=== PATIENT | male | born 1955 | race Caucasian/White ===

== ENCOUNTER 2017-10-13 13:04 | Observation (INO) | payer OTHER ==
[~2017-10-13] VITALS: Ht 182.9 cm; Wt 145.1 kg
[~2017-10-13 13:04] MED LIST: ENAL5TAB92 PO; FURO20TA PO
[2017-10-13 13:18] VITALS: BP 162/84
[2017-10-13] MEDS ORDERED: TETANUS-DIPTH-ACEL PERTUSSIS 0.5ML SYRG IM ONE (13:30)
[2017-10-13 13:58] LABS: Basophils # (auto) 0 uL; Basophils % (auto) 0.4 % (0.0-2.0); Eosinophils # (auto) 0 uL; Eosinophils % (auto) 0.4 % (0.0-7.0); Hematocrit 39.5 % (41.0-53.0); Hemoglobin 13.4 g/dL (13.5-17.5); Lymphocytes # (auto) 0.8 uL; Lymphocytes % (auto) 8.2 % (10.0-50.0); Mean Corpuscular Hemoglobin 28.5 pg (28.0-32.0); Mean Corpuscular Volume 83.8 fL (80.0-100.0); Monocytes # (auto) 0.7 uL; Neutrophils # (auto) 8.4 uL; Nucleated Red Blood Cells % 0.1 %; Platelet Count (auto) 218 10^3/uL (140-450); Red Blood Cells 4.71 10^6/uL (4.5-5.90)
[2017-10-13 14:11] LABS: Partial Thromboplastin Time 24.3 sec (22.64-33.71); Prothrombin Time 10.9 sec (9.37-12.3)
[2017-10-13 14:24] LABS: Albumin 3.7 g/dL (3.4-5.0); BUN/Creatinine Ratio 13.7; Bilirubin, Total 0.4 mg/dL (0.2-1.0); Magnesium 2.5 mg/dL (1.6-2.6); Potassium 3.9 mmol/L (3.5-5.1); Total Protein 7.2 g/dL (6.4-8.2)
[2017-10-13] MEDS ORDERED: ACETAMINOPHEN 325 MG TAB PO ONE (15:45)
== END 2017-10-13 16:31 | disposition home or self-care (01) | DRG 156 ==
LOC: ER 13:04 → EDBD 13:04 → OVERFLOW 13:29 → ER 16:31
PROVIDERS: ADMIT Family Medicine; ATTEND Family Medicine
DX: S02.2XXA Fracture of nasal bones, initial encounter for closed fracture (principal); F41.9 Anxiety disorder, unspecified; S00.83XA Contusion of other part of head, initial encounter; I10 Essential (primary) hypertension; Y04.2XXA Assault by strike against or bumped into by another person, initial encounter; Y93.89 Activity, other specified; Y92.89 Other specified places as the place of occurrence of the external cause; Y99.8 Other external cause status; Z23 Encounter for immunization
CPT/HCPCS: 36415; 70450; 70486; 71045; 80053; 83735; 84484; 85025; 85610; 85730; 90471; 90715; 93005; 99285; G0378

== ENCOUNTER 2021-01-07 07:13 | Inpatient (IN) | payer OTHER ==
[~2021-01-07] VITALS: Ht 182.9 cm; Wt 161.0 kg
[~2021-01-07 07:13] MED LIST changes: +ENAL5TAB10 PO; -ENAL5TAB92 PO; +FURO1TAB33 PO; -FURO20TA PO
[2021-01-07] MEDS ORDERED: dilTIAZem HCL 50 MG/10 ML VIAL IV ONE (07:33)
[2021-01-07] MEDS ORDERED: FUROSEMIDE 40 MG/4 ML VIAL IV ONE (07:45)
[2021-01-07] MEDS ORDERED: dilTIAZem 25 MG/5 ML VIAL IV ONE (07:45)
[2021-01-07 07:47] LABS: Basophils # (auto) 0 10 ^3/uL (0-0.2); Basophils % (auto) 0.3 % (0.0-2.0); Eosinophils # (auto) 0.2 10 ^3/uL (0-0.8); Eosinophils % (auto) 1.8 % (0.0-7.0); Hematocrit 43.7 % (41.0-53.0); Hemoglobin 15.2 g/dL (13.5-17.5); Lymphocytes # (auto) 1.6 10 ^3/uL (0.4-5.4); Mean Corpuscular Hemoglobin 32.6 pg (28.0-32.0); Mean Corpuscular Hgb Conc. 34.8 g/dL (32.0-36.0); Mean Corpuscular Volume 93.5 fL (80.0-100.0); Monocytes # (auto) 0.5 10 ^3/uL (0-1.3); Neutrophils # (auto) 8.5 10 ^3/uL (1.6-8.6); Neutrophils % (auto) 77.9 % (37.0-80.0); Nucleated Red Blood Cells % 0.1 %; Red Blood Cells 4.68 10^6/uL (4.5-5.90); Red Cell Distribution Width 16.7 % (11.8-14.3); White Blood Cell 10.9 10^3/uL (4.4-10.8)
[2021-01-07 08:01] LABS: INR 1.07 (0.9-1.15)
[2021-01-07 08:05] LABS: Alanine Aminotransferase 56 U/L (16-61); Albumin 3.6 g/dL (3.4-5.0); Anion Gap 5 (5-15); Blood Urea Nitrogen 15 mg/dL (7-18); Calcium 8.6 mg/dL (8.5-10.1); Carbon Dioxide 29 mmol/L (21-32); Chloride 108 mmol/L (98-107); Glucose 156 mg/dL (74-106); Potassium 3.4 mmol/L (3.5-5.1); Sodium 142 mmol/L (136-145)
[2021-01-07 08:10] LABS: Alkaline Phosphatase 66 U/L (45-117); Aspartate Aminotransferase 39 U/L (15-37); BUN/Creatinine Ratio 14.7; Bilirubin, Total 1.2 mg/dL (0.2-1.0); GFR African American 94 mL/min; GFR Non-African American 77 mL/min; Total Protein 7.3 g/dL (6.4-8.2)
[2021-01-07 12:33] LABS: Urine WBC None Seen /hpf (0 - 3)
[2021-01-07 12:50] LABS: Urine Bacteria NONE SEEN /hpf (None Seen); Urine Blood Negative /uL (Negative); Urine Specific Gravity 1.009 (1.001-1.035)
[2021-01-07] MEDS ORDERED: NITROGLYCERIN 0.4 MG SL TAB SL PRN ×2 (13:00→18:00)
[2021-01-07] MEDS ORDERED: MORPHINE SULFATE INJECTION 2 MG/ML SYRG IV PRN ×3 (13:00→18:00)
[2021-01-07] MEDS ORDERED: ONDANSETRON HCL 4 MG/2 ML VIAL ONE (13:25)
[2021-01-07] MEDS ORDERED: ACETAMINOPHEN 325 MG TAB PO ONE (17:30)
[2021-01-07 17:58] VITALS: BP 123/99
[2021-01-07] MEDS ORDERED: ALUM & MAG HYDROX-SIMETH LIQ(MAALOX) 30 ML PO PRN (18:00)
[2021-01-07] MEDS ORDERED: ACETAMINOPHEN 325 MG TAB PO PRN (18:00)
[2021-01-07] MEDS ORDERED: METOCLOPRAMIDE HCL 5MG/ml INJ 2ml VIAL IV PRN (18:00)
[2021-01-07] MEDS ORDERED: DOCUSATE SOD 100 MG CAP PO PRN (18:00)
[2021-01-07] MEDS: RIVAROXABAN 20 MG TAB PO SCH (18:18)
[2021-01-07 18:24] VITALS: BP 123/99
[2021-01-07] MEDS ORDERED: CARV3.1240 PO (18:31)
[2021-01-07] MEDS ORDERED: PREG-108 PO (18:31)
[2021-01-07] MEDS: FUROSEMIDE 40 MG/4 ML VIAL IV SCH (18:43)
[2021-01-07] MEDS: SODIUM CHLOR 0.9% PF (SALINE LOCK) 10ML VIAL/SYR IV SCH (21:10)
[2021-01-07] MEDS: ATORVASTATIN 20 MG TAB PO SCH (21:11)
[2021-01-07] MEDS: SACUBITRIL-VALSARTAN 24mg/26mg TAB PO SCH (21:11)
[2021-01-07] MEDS: GABAPENTIN 300 MG CAP PO SCH (21:11)
[2021-01-07] MEDS: LORazepam 0.5 MG TAB PO PRN (21:12)
[2021-01-07 22:00] VITALS: BP 128/78
[2021-01-07 22:34] LABS: Alcohol, Urine < 3.0 mg/dL (0-10); Amphetamine Screen, Urine NEGATIVE (NEGATIVE); Barbiturate Scree,Urine NEGATIVE (NEGATIVE); Benzodiazephine Screen, Urine NEGATIVE (NEGATIVE); Cannabinoid Screen, Urine POSITIVE (NEGATIVE); Cocaine Screen, Urine NEGATIVE (NEGATIVE); Opiate Scree,Urine NEGATIVE (NEGATIVE); Phencyclidine Screen, Urine NEGATIVE (NEGATIVE)
[2021-01-07] MEDS: HYDROcodone-ACET 5/325MG TAB PO PRN (23:10)
[2021-01-08 05:00] VITALS: BP 121/77
[2021-01-08 05:56] LABS: Albumin 3.3 g/dL (3.4-5.0); Anion Gap 3 (5-15); Blood Urea Nitrogen 16 mg/dL (7-18); Calcium 8.3 mg/dL (8.5-10.1); Carbon Dioxide 34 mmol/L (21-32); Chloride 104 mmol/L (98-107); Glucose 107 mg/dL (74-106); Magnesium 2.1 mg/dL (1.6-2.6); Potassium 3.5 mmol/L (3.5-5.1); Sodium 141 mmol/L (136-145); Uric Acid 9.2 mg/dL (3.5-7.2)
[2021-01-08 06:00] LABS: Basophils # (auto) 0 10 ^3/uL (0-0.2); Basophils % (auto) 0.5 % (0.0-2.0); Eosinophils # (auto) 0.2 10 ^3/uL (0-0.8); Eosinophils % (auto) 2.8 % (0.0-7.0); Hematocrit 42.2 % (41.0-53.0); Hemoglobin 14.8 g/dL (13.5-17.5); Lymphocytes # (auto) 1.7 10 ^3/uL (0.4-5.4); Lymphocytes % (auto) 29.1 % (10.0-50.0); Mean Corpuscular Hemoglobin 32.6 pg (28.0-32.0); Monocytes # (auto) 0.4 10 ^3/uL (0-1.3); Monocytes % (auto) 7.7 % (0.0-12.0); Neutrophils # (auto) 3.5 10 ^3/uL (1.6-8.6); Neutrophils % (auto) 59.9 % (37.0-80.0); Nucleated Red Blood Cells % 0.1 %; Red Blood Cells 4.54 10^6/uL (4.5-5.90); Red Cell Distribution Width 16.5 % (11.8-14.3); White Blood Cell 5.8 10^3/uL (4.4-10.8)
[2021-01-08 06:02] LABS: Alanine Aminotransferase 51 U/L (16-61); Alkaline Phosphatase 61 U/L (45-117); Aspartate Aminotransferase 33 U/L (15-37); BUN/Creatinine Ratio 17.4; Bilirubin, Total 1.7 mg/dL (0.2-1.0); GFR African American 106 mL/min; GFR Non-African American 87 mL/min; Phosphorus 3.6 mg/dL (2.5-4.90); Total Protein 6.8 g/dL (6.4-8.2)
[2021-01-08] MEDS: GABAPENTIN 300 MG CAP PO SCH ×2 (06:54→15:21)
[2021-01-08] MEDS: FUROSEMIDE 40 MG/4 ML VIAL IV SCH ×2 (06:54→18:19)
[2021-01-08] MEDS: SODIUM CHLOR 0.9% PF (SALINE LOCK) 10ML VIAL/SYR IV SCH ×2 (06:54→15:21)
[2021-01-08 08:30] VITALS: BP 142/94
[2021-01-08 08:42] LABS: INR 1.22 (0.9-1.15); Partial Thromboplastin Time 31.9 sec (23.0-31.2)
[2021-01-08] MEDS: SACUBITRIL-VALSARTAN 24mg/26mg TAB PO SCH (09:50)
[2021-01-08] MEDS: METOPROLOL SUCCINATE XL 50 MG TAB PO SCH (09:51)
[2021-01-08 12:25] VITALS: BP 120/87
[2021-01-08 17:00] VITALS: BP 134/99
[2021-01-08] MEDS: RIVAROXABAN 20 MG TAB PO SCH (18:19)
[2021-01-08] MEDS: LORazepam 0.5 MG TAB PO PRN (19:39)
[2021-01-08] MEDS ORDERED: ALBUTEROL SULF 2.5 MG/0.5ML(0.5%) NEB SOLN NEB ONE (20:30)
[2021-01-08] MEDS ORDERED: IPRATROPIUM BROM 0.5 MG/2.5ML INH SOL NEB ONE (20:30)
[2021-01-08] MEDS ORDERED: ALBUTEROL SULF 2.5 MG/0.5ML(0.5%) NEB SOLN ONE (20:31)
[2021-01-08] MEDS ORDERED: IPRATROPIUM BROM 0.5 MG/2.5ML INH SOL ONE (20:31)
[2021-01-08 20:38] VITALS: BP 134/99
[2021-01-08] MEDS ORDERED: POTASSIUM CHL 20 Meq TABLET PO ONE (20:45)
[2021-01-08] MEDS ORDERED: FUROSEMIDE 20 MG/2 ML VIAL IV ONE (20:45)
[2021-01-08] MEDS ORDERED: IOHEXOL 350 MG/ML 100ML IJ ONE (21:11)
[2021-01-08 22:00] VITALS: BP 140/51
[2021-01-09] MEDS: SACUBITRIL-VALSARTAN 24mg/26mg TAB PO SCH ×3 (00:14→22:00)
[2021-01-09] MEDS: SODIUM CHLOR 0.9% PF (SALINE LOCK) 10ML VIAL/SYR IV SCH ×4 (00:14→22:00)
[2021-01-09] MEDS: ATORVASTATIN 20 MG TAB PO SCH ×2 (00:14→22:00)
[2021-01-09] MEDS: DOXYCYCLINE 100MG/250ML 250 ML IV SCH ×3 (00:14→22:00)
[2021-01-09] MEDS: HYDROcodone-ACET 5/325MG TAB PO PRN (00:15)
[2021-01-09] MEDS: GABAPENTIN 300 MG CAP PO SCH ×4 (00:15→22:00)
[2021-01-09 05:00] VITALS: BP 130/68
[2021-01-09 06:07] LABS: Calcium 8.3 mg/dL (8.5-10.1); Potassium 3.3 mmol/L (3.5-5.1)
[2021-01-09 06:09] LABS: BUN/Creatinine Ratio 22.6
[2021-01-09] MEDS: IPRATROPIUM BROM 0.5 MG/2.5ML INH SOL NEB SCH ×3 (06:11→17:50)
[2021-01-09] MEDS: ALBUTEROL SULF 2.5 MG/0.5ML(0.5%) NEB SOLN NEB SCH ×3 (06:12→17:50)
[2021-01-09] MEDS: FUROSEMIDE 40 MG/4 ML VIAL IV SCH ×2 (06:35→18:22)
[2021-01-09 09:00] VITALS: BP 130/90
[2021-01-09] MEDS: METOPROLOL SUCCINATE XL 50 MG TAB PO SCH (10:12)
[2021-01-09 13:00] VITALS: BP 129/69
[2021-01-09 13:42] LABS: Calcium 8.4 mg/dL (8.5-10.1); Potassium 3.9 mmol/L (3.5-5.1)
[2021-01-09 17:00] VITALS: BP 141/77
[2021-01-09] MEDS: RIVAROXABAN 20 MG TAB PO SCH (18:21)
[2021-01-09 21:40] VITALS: BP 136/74
[2021-01-10] MEDS ORDERED: INFLUENZA QUAD 2020-2021 0.5 ML SYRG IM ONE (05:00)
[2021-01-10 05:32] VITALS: BP 132/91
[2021-01-10] MEDS: FUROSEMIDE 40 MG/4 ML VIAL IV SCH ×2 (06:00→18:08)
[2021-01-10] MEDS: GABAPENTIN 300 MG CAP PO SCH ×3 (06:00→22:36)
[2021-01-10] MEDS: SODIUM CHLOR 0.9% PF (SALINE LOCK) 10ML VIAL/SYR IV SCH ×3 (06:00→22:34)
[2021-01-10] MEDS: ALBUTEROL SULF 2.5 MG/0.5ML(0.5%) NEB SOLN NEB SCH ×3 (06:43→18:25)
[2021-01-10] MEDS: IPRATROPIUM BROM 0.5 MG/2.5ML INH SOL NEB SCH ×3 (06:43→18:25)
[2021-01-10 06:58] LABS: Basophils # (auto) 0 10 ^3/uL (0-0.2); Basophils % (auto) 0.4 % (0.0-2.0); Eosinophils # (auto) 0.2 10 ^3/uL (0-0.8); Eosinophils % (auto) 2.6 % (0.0-7.0); Hematocrit 43.4 % (41.0-53.0); Hemoglobin 15.4 g/dL (13.5-17.5); Lymphocytes # (auto) 1.8 10 ^3/uL (0.4-5.4); Lymphocytes % (auto) 21.4 % (10.0-50.0); Mean Corpuscular Hgb Conc. 35.5 g/dL (32.0-36.0); Mean Corpuscular Volume 92.8 fL (80.0-100.0); Monocytes # (auto) 0.7 10 ^3/uL (0-1.3); Monocytes % (auto) 8.7 % (0.0-12.0); Neutrophils # (auto) 5.5 10 ^3/uL (1.6-8.6); Neutrophils % (auto) 66.9 % (37.0-80.0); Nucleated Red Blood Cells % 0.3 %; Red Blood Cells 4.68 10^6/uL (4.5-5.90); Red Cell Distribution Width 16.5 % (11.8-14.3); White Blood Cell 8.2 10^3/uL (4.4-10.8)
[2021-01-10 07:25] LABS: Potassium 3.6 mmol/L (3.5-5.1)
[2021-01-10 07:31] LABS: BUN/Creatinine Ratio 18.5; Calcium 8.8 mg/dL (8.5-10.1); Magnesium 2.1 mg/dL (1.6-2.6)
[2021-01-10] MEDS ORDERED: PNEUMOCOCCAL VACC POLYS 25 MCG/0.5 ML VIAL IM ONE (07:45)
[2021-01-10 09:00] VITALS: BP 121/83
[2021-01-10] MEDS: SACUBITRIL-VALSARTAN 24mg/26mg TAB PO SCH ×2 (10:38→22:35)
[2021-01-10] MEDS: METOPROLOL SUCCINATE XL 50 MG TAB PO SCH (10:39)
[2021-01-10] MEDS: DOXYCYCLINE 100MG/250ML 250 ML IV SCH ×2 (10:40→22:34)
[2021-01-10 13:00] VITALS: BP 122/64
[2021-01-10] MEDS ORDERED: MIDAZOLAM HCL 2MG/2ML 2ml VIAL (1mg/ml) IV ONE (13:00)
[2021-01-10] MEDS ORDERED: fentaNYL CITRATE 100 MCG/2 ML VL IV ONE (13:00)
[2021-01-10] MEDS ORDERED: diphenhdrAMINE HCL 50 MG/1 ML VL IV ONE (13:00)
[2021-01-10] MEDS: RIVAROXABAN 20 MG TAB PO SCH (18:08)
[2021-01-10] MEDS: ATORVASTATIN 20 MG TAB PO SCH (22:35)
[2021-01-11] VITALS (7 sets, daily range): BP systolic 111–144; BP diastolic 67–99
[2021-01-11] MEDS: IPRATROPIUM BROM 0.5 MG/2.5ML INH SOL NEB SCH ×3 (06:02→19:12)
[2021-01-11] MEDS: ALBUTEROL SULF 2.5 MG/0.5ML(0.5%) NEB SOLN NEB SCH ×3 (06:02→19:12)
[2021-01-11 06:13] LABS: Basophils # (auto) 0 10 ^3/uL (0-0.2); Basophils % (auto) 0.5 % (0.0-2.0); Eosinophils # (auto) 0.2 10 ^3/uL (0-0.8); Eosinophils % (auto) 2.3 % (0.0-7.0); Hematocrit 40.8 % (41.0-53.0); Hemoglobin 14.5 g/dL (13.5-17.5); Lymphocytes # (auto) 1.4 10 ^3/uL (0.4-5.4); Lymphocytes % (auto) 19.2 % (10.0-50.0); Mean Corpuscular Hemoglobin 32.8 pg (28.0-32.0); Mean Corpuscular Hgb Conc. 35.4 g/dL (32.0-36.0); Mean Corpuscular Volume 92.6 fL (80.0-100.0); Monocytes # (auto) 0.7 10 ^3/uL (0-1.3); Monocytes % (auto) 8.9 % (0.0-12.0); Neutrophils # (auto) 5.1 10 ^3/uL (1.6-8.6); Neutrophils % (auto) 69.1 % (37.0-80.0); Nucleated Red Blood Cells % 0.1 %; Red Blood Cells 4.41 10^6/uL (4.5-5.90); Red Cell Distribution Width 16.2 % (11.8-14.3); White Blood Cell 7.4 10^3/uL (4.4-10.8)
[2021-01-11] MEDS: SODIUM CHLOR 0.9% PF (SALINE LOCK) 10ML VIAL/SYR IV SCH ×3 (06:28→22:13)
[2021-01-11] MEDS: FUROSEMIDE 40 MG/4 ML VIAL IV SCH ×2 (06:28→17:39)
[2021-01-11] MEDS: GABAPENTIN 300 MG CAP PO SCH ×3 (06:29→22:14)
[2021-01-11 06:37] LABS: BUN/Creatinine Ratio 21.7; Calcium 8.8 mg/dL (8.5-10.1); Potassium 3.2 mmol/L (3.5-5.1)
[2021-01-11] MEDS: SACUBITRIL-VALSARTAN 24mg/26mg TAB PO SCH ×2 (10:47→22:14)
[2021-01-11] MEDS: METOPROLOL SUCCINATE XL 50 MG TAB PO SCH (10:49)
[2021-01-11] MEDS: DOXYCYCLINE 100MG/250ML 250 ML IV SCH ×2 (10:53→22:14)
[2021-01-11] MEDS ORDERED: POTASSIUM CHL 20 Meq TABLET PO ONE (14:45)
[2021-01-11] MEDS: POTASSIUM CHL 20MEQ/100ML 100 ML IV SCH ×2 (16:11→16:45)
[2021-01-11] MEDS: RIVAROXABAN 20 MG TAB PO SCH (17:44)
[2021-01-11] MEDS: ATORVASTATIN 20 MG TAB PO SCH (22:14)
[2021-01-12 05:00] VITALS: BP 137/95
[2021-01-12 05:39] LABS: Calcium 8.7 mg/dL (8.5-10.1); Magnesium 2.1 mg/dL (1.6-2.6); Potassium 3.6 mmol/L (3.5-5.1)
[2021-01-12 05:42] LABS: BUN/Creatinine Ratio 21.8
[2021-01-12] MEDS: GABAPENTIN 300 MG CAP PO SCH (05:54)
[2021-01-12] MEDS: SODIUM CHLOR 0.9% PF (SALINE LOCK) 10ML VIAL/SYR IV SCH (05:54)
[2021-01-12] MEDS: FUROSEMIDE 40 MG/4 ML VIAL IV SCH (05:55)
[2021-01-12] MEDS: ALBUTEROL SULF 2.5 MG/0.5ML(0.5%) NEB SOLN NEB SCH ×2 (05:56→13:14)
[2021-01-12] MEDS: IPRATROPIUM BROM 0.5 MG/2.5ML INH SOL NEB SCH ×2 (05:56→13:15)
[2021-01-12 09:00] VITALS: BP 123/87
[2021-01-12] MEDS: SACUBITRIL-VALSARTAN 24mg/26mg TAB PO SCH (09:24)
[2021-01-12] MEDS: METOPROLOL SUCCINATE XL 50 MG TAB PO SCH (09:25)
[2021-01-12] MEDS: DOXYCYCLINE 100MG/250ML 250 ML IV SCH (09:25)
== END 2021-01-12 12:40 | disposition home health service (06) | DRG 291 ==
LOC: ER 07:13 → EDBD 07:13 → TELE 12:58 → TELE-WESTW 17:33
PROVIDERS: ADMIT Hospitalist; ATTEND Internal Medicine
PROC: B24BZZ4 Ultrasonography of Heart with Aorta, Transesophageal (ICD-10-PCS; principal; 2021-01-10)
DX: I11.0 Hypertensive heart disease with heart failure (principal); J96.01 Acute respiratory failure with hypoxia; I48.19 Other persistent atrial fibrillation; D68.59 Other primary thrombophilia; E66.2 Morbid (severe) obesity with alveolar hypoventilation; Z68.42 Body mass index [BMI] 45.0-49.9, adult; I50.43 Acute on chronic combined systolic (congestive) and diastolic (congestive) heart failure; I42.9 Cardiomyopathy, unspecified; I16.0 Hypertensive urgency; E87.6 Hypokalemia; E78.5 Hyperlipidemia, unspecified; K75.81 Nonalcoholic steatohepatitis (NASH); Z20.822 Contact with and (suspected) exposure to COVID-19; F12.90 Cannabis use, unspecified, uncomplicated; I34.2 Nonrheumatic mitral (valve) stenosis; I87.2 Venous insufficiency (chronic) (peripheral); J44.9 Chronic obstructive pulmonary disease, unspecified; Z79.01 Long term (current) use of anticoagulants; Z82.0 Family history of epilepsy and other diseases of the nervous system; Z82.49 Family history of ischemic heart disease and other diseases of the circulatory system
CPT/HCPCS: 36415; 36600; 51702; 71045; 71275; 80048; 80053; 80307; 81001; 82306; 82805; 83036; 83735; 83880; 84100; 84439; 84443; 84484; 84550; 85025; 85379; 85610; 85730; 87040; 87086; 87426; 93005; 93306; 93312; 93970; 94640; 96374; 96375; 99152; 99291; G0378; J2250; J2405; J3480; J3490

== ENCOUNTER 2022-09-18 09:58 | Inpatient (IN) | payer OTHER ==
[~2022-09-18] VITALS: Ht 182.9 cm; Wt 150.0 kg
[~2022-09-18 09:58] MED LIST changes: -ENAL5TAB10 PO; +PREG-108 PO
[2022-09-18 11:09] LABS: Basophils # (auto) 0 10 ^3/uL (0-0.2); Basophils % (auto) 0.2 % (0.0-2.0); Eosinophils # (auto) 0.1 10 ^3/uL (0-0.8); Eosinophils % (auto) 0.4 % (0.0-7.0); Hematocrit 44.2 % (41.0-53.0); Hemoglobin 14.5 g/dL (13.5-17.5); Lymphocytes # (auto) 1.3 10 ^3/uL (0.4-5.4); Lymphocytes % (auto) 10.9 % (10.0-50.0); Mean Corpuscular Hemoglobin 29.6 pg (28.0-32.0); Mean Corpuscular Hgb Conc. 32.8 g/dL (32.0-36.0); Mean Corpuscular Volume 90.3 fL (80.0-100.0); Monocytes # (auto) 1.6 10 ^3/uL (0-1.3); Monocytes % (auto) 12.6 % (0.0-12.0); Neutrophils # (auto) 9.4 10 ^3/uL (1.6-8.6); Neutrophils % (auto) 75.9 % (37.0-80.0); Nucleated Red Blood Cells % 0.2 %; Red Blood Cells 4.89 10^6/uL (4.5-5.90); White Blood Cell 12.4 10^3/uL (4.4-10.8)
[2022-09-18 11:36] LABS: Albumin 3.2 g/dL (3.4-5.0); Calcium 8.8 mg/dL (8.5-10.1)
[2022-09-18 11:40] LABS: BUN/Creatinine Ratio 25.8; Bilirubin, Total 0.9 mg/dL (0.2-1.0); Total Protein 7.8 g/dL (6.4-8.2)
[2022-09-18 11:45] LABS: Potassium 5.6 mmol/L (3.5-5.1)
[2022-09-18] MEDS ORDERED: SODIUM BICARBONATE 8.4% INJ 50ML SYRINGE IV ONE (12:00)
[2022-09-18] MEDS ORDERED: InsuLIN REG 1unit/0.01ml Soln (100units/ml) IV ONE (12:00)
[2022-09-18] MEDS ORDERED: FUROSEMIDE 40 MG/4 ML VIAL IV ONE (12:00)
[2022-09-18] MEDS ORDERED: CLINDAMYCIN 600MG IV 50 ML IV ONE (12:00)
[2022-09-18] MEDS ORDERED: DEXTROSE (50%) 50ML SYRG IV ONE (12:00)
[2022-09-18] MEDS ORDERED: cefTRIAXone 1GM/50ML D5W 50 ML IV ONE (12:00)
[2022-09-18] MEDS ORDERED: CALCIUM GLUC 1,000mg/50ml-NS 50 ML IV ONE (12:00)
[2022-09-18] MEDS ORDERED: SODIUM ZIRCONIUM CYCL 10 GM PAK PO ONE (12:00)
[2022-09-18] MEDS ORDERED: ALBUTEROL SULF 2.5 MG/0.5ML(0.5%) NEB SOLN NEB ONE (12:00)
[2022-09-18 12:31] LABS: INR 1.18 (0.9-1.15)
[2022-09-18] MEDS ORDERED: ATROPINE SULF 1 MG/10ml SYR IV ONE (14:15)
[2022-09-18] MEDS: DOPamine 1600MCG/ML D5W 250 ML IV SCH ×5 (14:15→21:48)
[2022-09-18 14:18] LABS: Lactic Acid w/Reflex 2.5 mmol/L (0.4-2.0)
[2022-09-18] MEDS ORDERED: ONDANSETRON HCL 4 MG/2 ML VIAL ONE (14:29)
[2022-09-18] MEDS ORDERED: ONDANSETRON HCL 4 MG/2 ML VIAL IV ONE (15:00)
[2022-09-18] MEDS ORDERED: ACETAMINOPHEN 325 MG TAB PO PRN (18:00)
[2022-09-18] MEDS ORDERED: NITROGLYCERIN 0.4 MG SL TAB SL PRN (18:00)
[2022-09-18] MEDS ORDERED: HYDROcodone-ACET 5/325MG TAB PO PRN (18:00)
[2022-09-18] MEDS ORDERED: MORPHINE SULFATE INJ 2 MG/ml SYRG IV PRN ×2 (18:00)
[2022-09-18] MEDS ORDERED: VANCOMYCIN PER PHARMACY 0 MG IV SCH (18:15)
[2022-09-18] MEDS ORDERED: IPRATROPIUM BROM 0.5 MG/2.5ML INH SOL NEB PRN (18:15)
[2022-09-18] MEDS ORDERED: PANTOPRAZOLE 40 MG/10 ML VIAL INJ IV ONE (18:15)
[2022-09-18] MEDS ORDERED: ALBUTEROL SULF 2.5 MG/0.5ML(0.5%) NEB SOLN NEB PRN (18:15)
[2022-09-18] MEDS ORDERED: hydrALAZINE HCL 20 MG/ML VL IV PRN (18:15)
[2022-09-18 18:24] LABS: Urine Bacteria NONE SEEN /hpf (None Seen); Urine Blood 2+ /uL (Negative); Urine Hyaline Cast FEW /lpf (0 - 2); Urine Specific Gravity 1.017 (1.001-1.035); Urine WBC 2 /hpf (0 - 3)
[2022-09-18 19:00] VITALS: BP 91/41
[2022-09-18] MEDS ORDERED: PIPERACILLIN-TAZOB 2.25GM 50 ML IV ONE (19:00)
[2022-09-18 19:41] LABS: Cholesterol 72 mg/dL (< 200); HDL Cholesterol 32 mg/dL (40-59); LDL Cholesterol 42 mg/dL (< 100); Triglycerides 77 mg/dL (< 150)
[2022-09-18] MEDS ORDERED: VANCOMYCIN 1GM/250ML 250 ML IV ONE ×2 (20:00→21:15)
[2022-09-18] MEDS ORDERED: ALBUTEROL MEDNEB 2.5 mg/3ml NEB ONE (20:08)
[2022-09-18] MEDS: methylPREDNISolone SOD SUCC 125 MG/2 ML VL IV SCH (22:12)
[2022-09-18] MEDS: ENOXAPARIN SOD 150 MG/1 ML SYRINGE SC SCH (22:13)
[2022-09-18 22:37] LABS: BUN/Creatinine Ratio 22.7; Calcium 9.7 mg/dL (8.5-10.1)
[2022-09-18 22:38] LABS: Potassium 5.4 mmol/L (3.5-5.1)
[2022-09-18] MEDS ORDERED: ROCURONIUM 10MG/ML 10ML VIAL IV ONE (22:41)
[2022-09-18] MEDS ORDERED: ETOMIDATE (2MG/ML) 20ML VIAL IV ONE (22:41)
[2022-09-18] MEDS ORDERED: EPINEPHrine HCL 250 ML IV ONE (22:50)
[2022-09-18] MEDS ORDERED: SODIUM BICARBONATE 8.4 % INJ 50ML VIAL IV ONE (22:54)
[2022-09-18] MEDS ORDERED: CALCIUM CHLOR(10%) 100MG/ML 10ML SYRINGE IV ONE (22:54)
[2022-09-18] MEDS ORDERED: AMIODARONE 450mg/250ml AE 250 ML IV ONE (22:58)
[2022-09-18] MEDS: EPINEPHrine HCL 250 ML IV SCH (23:00)
[2022-09-18] MEDS ORDERED: MIDAZOLAM DRIP 50 mg/50mL 50 ML IV SCH (23:30)
[2022-09-18] MEDS ORDERED: EPINEPHrine HCL 250 ML IV SCH (23:30)
[2022-09-18 23:37] VITALS: BP 140/66
[2022-09-19] VITALS (64 sets, daily range): BP systolic 96–153; BP diastolic 50–80
[2022-09-19] MEDS ORDERED: ALBUTEROL SULF 2.5 MG/0.5ML(0.5%) NEB SOLN NEB SCH
[2022-09-19] MEDS ORDERED: IPRATROPIUM BROM 0.5 MG/2.5ML INH SOL NEB SCH
[2022-09-19] MEDS: SODIUM BICARBONATE 50ML VIAL 100 ML in SOD CHL 0.45% 1,000 ML IV SCH ×2 (00:30→09:46)
[2022-09-19] MEDS: MIDAZOLAM DRIP 50 mg/50mL 50 ML IV SCH ×5 (02:00→23:43)
[2022-09-19] MEDS ORDERED: ALBUTEROL MEDNEB 2.5 mg/3ml NEB ONE (02:25)
[2022-09-19] MEDS: PIPERACILLIN-TAZOB 2.25GM 50 ML IV SCH ×2 (03:00→06:00)
[2022-09-19] MEDS: fentaNYL Drip 2500mCg/250mlNS 250 ML IV SCH (04:00)
[2022-09-19 05:01] LABS: Hematocrit 46.3 % (41.0-53.0); Hemoglobin 14.9 g/dL (13.5-17.5); Mean Corpuscular Hemoglobin 29.3 pg (28.0-32.0); Mean Corpuscular Hgb Conc. 32.2 g/dL (32.0-36.0); Mean Corpuscular Volume 91.2 fL (80.0-100.0); Red Blood Cells 5.07 10^6/uL (4.5-5.90)
[2022-09-19 05:11] LABS: Basophils % (manual) 0 (0.0-2.0); Blast Cells 0; Eosinophils % (manual) 0 (0-7); Metamyelocytes % 0; Promyelocytes % 0; Reactive Lymphocytes 0
[2022-09-19 05:20] LABS: Albumin 2.8 g/dL (3.4-5.0); Calcium 10.6 mg/dL (8.5-10.1)
[2022-09-19 05:23] LABS: BUN/Creatinine Ratio 17.9; Bilirubin, Total 1.3 mg/dL (0.2-1.0); Total Protein 7.6 g/dL (6.4-8.2)
[2022-09-19 05:44] LABS: Potassium 5.6 mmol/L (3.5-5.1)
[2022-09-19 06:46] LABS: Band Neutrophils % (manual) 10; Lymphocytes % (manual) 1 (10.0-50.0); Monocytes % (manual) 7 (0-12); Myelocytes % 1
[2022-09-19] MEDS ORDERED: SODIUM ZIRCONIUM CYCL 10 GM PAK PO ONE (07:00)
[2022-09-19] MEDS: methylPREDNISolone SOD SUCC 125 MG/2 ML VL IV SCH ×2 (09:47→22:00)
[2022-09-19] MEDS: PANTOPRAZOLE 40 MG/10 ML VIAL INJ IV SCH (09:47)
[2022-09-19] MEDS: ENOXAPARIN SOD 150 MG/1 ML SYRINGE SC SCH (09:48)
[2022-09-19] MEDS: ACETAMINOPHEN 650 mg PER 20.3 mL UD GT PRN ×2 (09:48→17:31)
[2022-09-19] MEDS ORDERED: FUROSEMIDE 20 MG/2 ML VIAL IV SCH (10:00)
[2022-09-19] MEDS ORDERED: DEXTROSE (50%) 50ML SYRG IV PRN ×2 (10:00→13:30)
[2022-09-19] MEDS: DOPamine 1600MCG/ML D5W 250 ML IV SCH ×5 (10:02→22:46)
[2022-09-19] MEDS: ACCU-CHEK COMFORT CURVE STRIP VI SCH ×8 (10:03→22:45)
[2022-09-19] MEDS: InsuLIN REG 1unit/0.01ml Soln (100units/ml) SC SCH ×2 (10:06→13:14)
[2022-09-19] MEDS ORDERED: OPTISON 3ml Vial for INJ IV ONE ×2 (10:39)
[2022-09-19] MEDS ORDERED: InsuLIN REG 1unit/0.01ml Soln (100units/ml) IV ONE (11:30)
[2022-09-19] MEDS ORDERED: CALCIUM GLUC 1,000mg/50ml-NS 50 ML IV ONE (11:30)
[2022-09-19] MEDS ORDERED: ALBUTEROL SULF 2.5 MG/0.5ML(0.5%) NEB SOLN NEB ONE (11:30)
[2022-09-19] MEDS ORDERED: DEXTROSE 10% 250 ML Bag IV ONE (11:45)
[2022-09-19] MEDS: EPINEPHrine HCL 250 ML IV SCH ×3 (12:19→22:15)
[2022-09-19] MEDS: MEROPENEM 1GM IVPB 100 ML IV SCH (13:14)
[2022-09-19] MEDS: InsuLIN R (HUMAN) 100 UNITS in SODIUM CHL 0.9% 99 ML IV SCH (14:49)
[2022-09-19] MEDS ORDERED: VANCOMYCIN 1GM/250ML 250 ML IV SCH (15:00)
[2022-09-19] MEDS ORDERED: HEPARIN SODIUM (PORCINE) 5000 UNITS/ML 1ML VIAL IV ONE (15:15)
[2022-09-19] MEDS: HEPARIN DRIP/D5W 100UNITS/ML 250 ML IV SCH ×3 (15:45→16:30)
[2022-09-19 15:56] LABS: INR 1.35 (0.9-1.15); Partial Thromboplastin Time 38.5 sec (24.6-33.4)
[2022-09-19] MEDS: FUROSEMIDE 20 MG/2 ML VIAL IV SCH (17:55)
[2022-09-19] MEDS: LINEZOLID 600MG/300ML 300 ML IV SCH (22:00)
[2022-09-19 22:34] LABS: INR 1.48 (0.9-1.15)
[2022-09-19 23:00] LABS: Partial Thromboplastin Time > 139.0 sec (24.6-33.4)
[2022-09-20] VITALS (81 sets, daily range): BP systolic 51–141; BP diastolic 26–95
[2022-09-20] MEDS: MEROPENEM 1GM IVPB 100 ML IV SCH ×2 (00:49→12:33)
[2022-09-20] MEDS: SODIUM BICARBONATE 50ML VIAL 100 ML in SOD CHL 0.45% 1,000 ML IV SCH (00:56)
[2022-09-20] MEDS: ACCU-CHEK COMFORT CURVE STRIP VI SCH ×17 (01:42→23:58)
[2022-09-20] MEDS: fentaNYL Drip 2500mCg/250mlNS 250 ML IV SCH ×3 (03:00→20:38)
[2022-09-20] MEDS: MIDAZOLAM DRIP 50 mg/50mL 50 ML IV SCH ×4 (03:27→19:56)
[2022-09-20 04:25] LABS: Basophils # (auto) 0 10 ^3/uL (0-0.2); Eosinophils # (auto) 0 10 ^3/uL (0-0.8); Hematocrit 42.8 % (41.0-53.0); Hemoglobin 14.7 g/dL (13.5-17.5); Lymphocytes # (auto) 0.7 10 ^3/uL (0.4-5.4); Mean Corpuscular Hgb Conc. 34.4 g/dL (32.0-36.0); Mean Corpuscular Volume 87.2 fL (80.0-100.0); Monocytes # (auto) 0.8 10 ^3/uL (0-1.3); Monocytes % (auto) 4.6 % (0.0-12.0); Neutrophils % (auto) 91.4 % (37.0-80.0); Nucleated Red Blood Cells % 0.3 %; Red Blood Cells 4.91 10^6/uL (4.5-5.90); Red Cell Distribution Width 16.3 % (11.8-14.3); White Blood Cell 16.5 10^3/uL (4.4-10.8)
[2022-09-20 04:43] LABS: Albumin 2.3 g/dL (3.4-5.0); Calcium 8.9 mg/dL (8.5-10.1); Potassium 5.2 mmol/L (3.5-5.1)
[2022-09-20 04:46] LABS: BUN/Creatinine Ratio 19.4; Bilirubin, Total 0.7 mg/dL (0.2-1.0); Total Protein 6.5 g/dL (6.4-8.2)
[2022-09-20] MEDS: EPINEPHrine HCL 250 ML IV SCH ×3 (04:55→18:15)
[2022-09-20] MEDS: FUROSEMIDE 20 MG/2 ML VIAL IV SCH ×3 (06:11→18:09)
[2022-09-20 07:47] LABS: INR 1.4 (0.9-1.15)
[2022-09-20 07:59] LABS: Partial Thromboplastin Time 93.7 sec (24.6-33.4)
[2022-09-20] MEDS: HEPARIN DRIP/D5W 100UNITS/ML 250 ML IV SCH ×3 (08:00→15:30)
[2022-09-20] MEDS: DOPamine 1600MCG/ML D5W 250 ML IV SCH (08:58)
[2022-09-20] MEDS: LINEZOLID 600MG/300ML 300 ML IV SCH ×2 (09:14→22:00)
[2022-09-20] MEDS: PANTOPRAZOLE 40 MG/10 ML VIAL INJ IV SCH (09:15)
[2022-09-20] MEDS: methylPREDNISolone SOD SUCC 125 MG/2 ML VL IV SCH ×2 (09:15→22:00)
[2022-09-20] MEDS ORDERED: ENOXAPARIN SOD 40 MG/0.4 ML SYRINGE SC SCH (10:00)
[2022-09-20] MEDS: InsuLIN R (HUMAN) 100 UNITS in SODIUM CHL 0.9% 99 ML IV SCH (15:07)
[2022-09-20 15:17] LABS: INR 1.32 (0.9-1.15); Partial Thromboplastin Time 66.5 sec (24.6-33.4)
[2022-09-20 21:28] LABS: INR 1.34 (0.9-1.15); Partial Thromboplastin Time 67.4 sec (24.6-33.4)
[2022-09-20] MEDS ORDERED: MORPHINE SULFATE 4 MG/ML SYR/VIAL ONE (23:29)
[2022-09-20] MEDS: MORPHINE SULFATE 4 MG/ML SYR/VIAL IV PRN (23:30)
[2022-09-20] MEDS ORDERED: LORazepam 2MG/ML-1ML VIAL ONE (23:30)
[2022-09-20] MEDS: LORazepam 2MG/ML-1ML VIAL IV PRN (23:30)
[2022-09-21] VITALS (32 sets, daily range): BP systolic 57–86; BP diastolic 24–46
[2022-09-21] MEDS: MEROPENEM 1GM IVPB 100 ML IV SCH (01:00)
[2022-09-21] MEDS: MORPHINE SULFATE 4 MG/ML SYR/VIAL IV PRN ×2 (01:15→02:18)
[2022-09-21] MEDS: LORazepam 2MG/ML-1ML VIAL IV PRN ×2 (01:15→02:17)
[2022-09-21] MEDS: ACCU-CHEK COMFORT CURVE STRIP VI SCH (01:30)
[2022-09-21] MEDS ORDERED: MORPHINE SULFATE 4 MG/ML SYR/VIAL IV PRN (03:15)
[2022-09-21] MEDS ORDERED: LORazepam 2MG/ML-1ML VIAL IV PRN (03:15)
== END 2022-09-21 16:15 | DRG 871 ==
LOC: ER 09:58 → TELE 17:53 → ICU WEST 09-19 09:05
PROVIDERS: ADMIT Registered Nurse; ATTEND Hospitalist
PROC: 5A09357 Assistance with Respiratory Ventilation, Less than 24 Consecutive Hours, Continuous Positive Airway Pressure (ICD-10-PCS; 2022-09-18)
PROC: 5A12012 Performance of Cardiac Output, Single, Manual (ICD-10-PCS; 2022-09-18)
PROC: 0BH17EZ Insertion of Endotracheal Airway into Trachea, Via Natural or Artificial Opening (ICD-10-PCS; principal; 2022-09-19)
PROC: 5A1945Z Respiratory Ventilation, 24-96 Consecutive Hours (ICD-10-PCS; 2022-09-19)
PROC: 5A1945Z Respiratory Ventilation, 24-96 Consecutive Hours (ICD-10-PCS; 2022-09-19)
PROC: 0BH17EZ Insertion of Endotracheal Airway into Trachea, Via Natural or Artificial Opening (ICD-10-PCS; 2022-09-19)
PROC: 5A2204Z Restoration of Cardiac Rhythm, Single (ICD-10-PCS; 2022-09-19)
DX: A41.9 Sepsis, unspecified organism (principal); I50.43 Acute on chronic combined systolic (congestive) and diastolic (congestive) heart failure; J96.01 Acute respiratory failure with hypoxia; R65.21 Severe sepsis with septic shock; J18.9 Pneumonia, unspecified organism; I13.0 Hypertensive heart and chronic kidney disease with heart failure and stage 1 through stage 4 chronic kidney disease, or unspecified chronic kidney disease; J44.1 Chronic obstructive pulmonary disease with (acute) exacerbation; L03.115 Cellulitis of right lower limb; L03.116 Cellulitis of left lower limb; N17.9 Acute kidney failure, unspecified; Z68.41 Body mass index [BMI] 40.0-44.9, adult; Y99.8 Other external cause status; Z20.822 Contact with and (suspected) exposure to COVID-19; I46.9 Cardiac arrest, cause unspecified; R57.0 Cardiogenic shock; E11.22 Type 2 diabetes mellitus with diabetic chronic kidney disease; E66.01 Morbid (severe) obesity due to excess calories; E87.5 Hyperkalemia; I44.7 Left bundle-branch block, unspecified; W18.39XA Other fall on same level, initial encounter; I48.0 Paroxysmal atrial fibrillation; I51.3 Intracardiac thrombosis, not elsewhere classified; N18.32 Chronic kidney disease, stage 3b; S29.012A Strain of muscle and tendon of back wall of thorax, initial encounter; Z51.5 Encounter for palliative care; Z95.1 Presence of aortocoronary bypass graft; Y93.89 Activity, other specified; Y92.89 Other specified places as the place of occurrence of the external cause
CPT/HCPCS: 36415; 36556; 36600; 71045; 80048; 80053; 80061; 81001; 82805; 82962; 83036; 83605; 83735; 84443; 84484; 85007; 85025; 85027; 85610; 85730; 87040; 87070; 87077; 87081; 87086; 87186; 87205; 87426; 93005; 93306; 93970; 94002; 94003; 94640; 94660; 96365; 96375; 99291; C9113; G0378; J0171; J0696; J1815; J2185; J2250; J2405; J2543; J3490; Q9956